=== PATIENT | male | born 1985 | race Caucasian/White ===

== ENCOUNTER 2019-12-21 23:33 | Emergency (ER) | payer OTHER ==
[2019-12-22] MEDS ORDERED: DIPH/PERTUSS(ACELL)/TETANUS VAC/PF 0.5 ML SYR (>=10YO) IM ONE (00:08)
[2019-12-22] MEDS ORDERED: DOXYCYCLINE HYCLATE 100 MG TABLET PO ONE (00:11)
--- NOTE | 2019-12-22 00:14 | ER Document Report ---
HPI - HPI Patient complains to provider of: Hand laceration Time Seen by Provider: 12/22/19 00:01 Onset: Just prior to arrival Onset/Duration: Sudden Quality of pain: Achy Pain Level: 3 Context: Patient was shucking oysters and slipped cutting his right hand. Patient states the blade went through the oyster and into his hand. Patient is right-handed. Patient uncertain when his last tetanus immunization was. Patient states he copiously irrigated the wound at home. Associated Symptoms: Other - Right hand laceration Exacerbated by: Movement Relieved by: Denies Similar symptoms previously: No Recently seen / treated by doctor: No - ROS ROS below otherwise negative: Yes Systems Reviewed and Negative: Yes All other systems reviewed and negative - CONSTITUTIONAL Constitutional: DENIES: Fever - GASTROINTESTINAL Gastrointestinal: DENIES: Nausea - MUSCULOSKELETAL Musculoskeletal: REPORTS: Extremity pain - DERM Skin Color: Normal Skin Problems: Laceration Past Medical History - General Information source: Patient - Social History Smoking Status: Never Smoker Frequency of alcohol use: None Drug Abuse: None Lives with: Family Family History: Reviewed & Not Pertinent Patient has homicidal ideation: No Psychiatric Medical History: Reports: Hx Post Traumatic Stress Disorder Surgical Hx: Negative Vertical Provider Document - CONSTITUTIONAL Agree With Documented VS: Yes Exam Limitations: No Limitations General Appearance: WD/WN, No Apparent Distress - HEENT HEENT: Atraumatic, Normocephalic - NECK Neck: Normal Inspection - RESPIRATORY Respiratory: Breath Sounds Normal, No Respiratory Distress - CARDIOVASCULAR Cardiovascular: Regular Rate, Regular Rhythm Pulses: Normal: Radial - MUSCULOSKELETAL/EXTREMETIES Musculoskeletal/Extremeties: MAEW, FROM - NEURO Level of Consciousness: Awake, Alert, Appropriate Motor/Sensory: No Motor Deficit, No Sensory Deficit - DERM Integumentary: Warm, Dry, Laceration - .5 cm lac to webspace between r 1 and 2nd fingers Course - Re-evaluation Re-evalutation: 12/22/19 00:[address] Porter who agrees with plan to x-ray for foreign body, empirically cover for vibrio and to not suture wound closed at this time given concern about potential contamination. - Vital Signs Vital signs: Temp Pulse Resp BP Pulse Ox 98.1 F 91 20 207/78 H 98 12/22/19 00:04 12/22/19 00:04 12/22/19 00:04 12/22/19 00:04 12/22/19 00:04 - Diagnostic Test Radiology reviewed: Pending, Image reviewed Discharge - Discharge Clinical Impression: Hypertension Qualifiers: Hypertension type: unspecified Qualified Code(s): I10 - Essential (primary) hypertension Puncture wound of hand Qualifiers: Encounter type: initial encounter Foreign body presence: without foreign body Laterality: right Qualified Code(s): S61.431A - Puncture wound without foreign body of right hand, initial encounter Condition: Stable Disposition: HOME, SELF-CARE Instructions: Doxycycline ([facility]), High Blood Pressure ([facility]), Puncture Wound ([facility]), Tetanus Immunization Given ([facility]) Additional Instructions: Return immediately for any new or worsening symptoms Followup with your primary care provider, call tomorrow to make a followup appointment Keep wound covered as it continues to heal, monitor daily for any signs of infection such as redness, streaks, fever, purulent drainage, increased pain or any concerning new symptoms. Your blood pressure was elevated today, you need to be on a blood pressure medication. Speak with your doctor about the side effects of the medication that you are concerned about. Prescriptions: Doxycycline Hyclate 100 mg PO BID #14 tablet.dr Forms: Elevated Blood Pressure Referrals: [facility] [Provider Group] - Follow up as needed
--- NOTE | 2019-12-22 00:37 | RADIOLOGY REPORT (SQ) ---
CLINICAL HISTORY: pw, ? FB COMPARISON: None. TECHNIQUE: XR HAND 3 OR MORE VIEWS 12/22/2019 12:08 AM CDT FINDINGS: There is no fracture. Joint spaces are preserved. Soft tissues are unremarkable. IMPRESSION: No radiopaque foreign body.
[2019-12-22 01:09] VITALS: BP 148/93
== END 2019-12-22 01:17 | disposition home or self-care (01) ==
LOC: ER 23:33
DX: Z23 Encounter for immunization (principal); S61.431A Puncture wound without foreign body of right hand, initial encounter; I10 Essential (primary) hypertension; M79.601 Pain in right arm; W45.8XXA Other foreign body or object entering through skin, initial encounter
CPT/HCPCS: 90471; 90715; 99283